=== PATIENT | male | born 1990 | race Caucasian/White ===

== ENCOUNTER 2024-06-23 20:32 | Emergency (ER) | payer SELFPAY ==
[~2024-06-23] VITALS: Ht 177.8 cm; Wt 79.4 kg
[2024-06-23 20:37] VITALS: BP 148/85; PULSE 150; RESP 20; TEMP 98; O2SAT 100
[2024-06-23] MEDS: LORazepam 2 MG/ML VIAL IM ONE (21:00)
[2024-06-23] MEDS ORDERED: WATER STERILE 10 ML MC ONE (21:57)
[2024-06-23] MEDS: ZIPRASIDONE MESYLATE 20 MG/ML VIAL IM ONE (22:15)
[2024-06-24 04:08] VITALS: BP 148/85; PULSE 150; RESP 20; TEMP 98; O2SAT 100
== END 2024-06-24 04:09 | disposition home or self-care (01) ==
LOC: MED 20:32
DX: R45.1 Restlessness and agitation (principal); R03.0 Elevated blood-pressure reading, without diagnosis of hypertension
CPT/HCPCS: 96372; 99284; J2060; J3486